=== PATIENT | male | born 1955 | race Caucasian/White ===

== ENCOUNTER 2020-10-03 13:25 | Outpatient (CLI) | payer MEDICARE ==
[2020-10-03 16:27] VITALS: BP 150/70
--- NOTE | 2020-10-03 16:27 | SLEEP CARE CONSULTATION ---
Information from patient questionnaire entered by Luisa Norman. I have reviewed and concur with the information entered by Luisa Norman. This document represents the service I personally performed and the decisions made by me, Jazlyn Maldonado MD, [facility]. History of Present Illness Service Date and Time: 10/03/2020 1325 Reason for Visit: New patient, Previously diagnosed sleep apnea, sleep apnea on CPAP therapy Usual bedtime: 9 PM Time it takes to fall asleep: 10 minutes Observed to quit breathing while asleep: Yes Sleeps alone due to snoring: Yes Number of times waking at night: 1 Reasons for waking at night: reports: Bathroom Toss, Turn, or Twitch while sleeping: No Recalls having dreams: Yes Usually gets out of bed at: 7 am Feels refreshed in the morning: Yes Morning headache: No Sleepy or fatigued during the day: No Ever fallen asleep while driving: No Takes day naps: Yes Dreams during day naps: No Prior sleep studies: Yes Year and Where: [place] Additional HPI information: I had the pleasure of seeing Mr. Josue today regarding obstructive sleep apnea- hypopnea. As you know, he is a 65 year old gentleman who was diagnosed with the sleep-disordered breathing in [place] about 20 years ago. His last sleep study was 12 years ago. Records are not available. The ResMed AirSense that he is using is his 3rd device. It is set on 7 cmH2O. It is 4 years old. He uses the device every night and all night. The compliance data show usage in 171 out of the past 180 nights, averaging 5.2 hours a night (he usually does not put it back on after going to the bathroom in the middle of the night). The residual AHI is 7.1 and average air leak is 8.5 L/minute. He wears a ResMed AirTouch F- 20 full face mask. He gets his supplies from [employer]. He finds the treatment beneficial. - Parasomnia Symptoms Ever been unable to move upon waking from sleep: No Walks in sleep: No Talks in sleep: No Ever acted out dreams in sleep: No Ever felt weak in the knees when startled or emotional: No Bothered by creepy, crawly, restless sensations in legs: No Problems with memory or concentration: No CPAP Compliance Data - Data Reviewed with Patient Average duration of nightly device use: 5 hr 13 min Compliance rate %: 72 (180 days) Current pressure setting (cmH2O): 7 Humidity settin Average residual AHI: 7.1 Subjective Initial [place] Sleepiness Scale score: 5 (in 2020) Past Medical History Past Medical History: reports: Depression Social History The patient's occupation is a RETIRED. Patient is and lives in [place]. Have you smoked in the past 12 months: No Alcohol use: No Caffeine use: Yes Caffeine amount and frequency: 3 a day Family History Family history of sleep disordered breathing: No Allergies and Home Medications Drug allergies reviewed: Yes Home medication list reviewed: Yes Review of Systems Cardiovascular: denies: high blood pressure, palpitations, chest pain, irregular heart rate or pulse, leg or foot swelling, have to sleep sitting up, other Respiratory: denies: shortness of breath, wheeze, sputum production, chronic cough, other Gastrointestinal: denies: heartburn, difficulty swallowing, nausea, vomitting, diarrhea, abdominal pain, other Urinary: reports: frequency Neurological: denies: headaches, seizure, head trauma, disorientation, speech dysfunction, gait or balance problems, fainting or unconsciousness, other Psychiatric: reports: depression Ear/Nose/Throat: reports: injury to nose Endocrine: denies: thyroid disease, history of goiter, sluggishness, too hot or cold, excessive thirst, increased appetite, increased urination, unexplained weakness, other Musculoskeletal: denies: joint pain, neck pain, back pain, joint swelling, muscle pain or cramping, mobility problems, other Immunologic: denies: sneezing, rash, itching, allergies to food or environment, other Physical Exam Vital signs obtained and entered by: Dr. Maldonado Blood Pressure: 150/70 Cuff size: regular Heart Rate: 72 O2 Saturation: 97 Height: 6 ft 1 in Weight: 280 lb Body Mass Index: 36.9 BMI Classification: Obese Neck circumference: 17.5 Mood/affect: normal Impression and Plan IMPRESSION: 1. Obstructive Sleep Apnea-Hypopnea Syndrome, as previously diagnosed. The severity is unknown. The patient is using his CPAP consistently. The pressure of 7 cmH2O is not quite effective. I will raise it to 9 cmH2O. The patient has be purchasing supplies from [employer] [id number]. He is now on Medicare and would like the insurance to take over the cost of supplies. I explained to him that he will need to have a new sleep study to confirm the diagnosis and its severity. The patient agrees to another in-laboratory polysomnography. Plan: 1. Repeat in-laboratory polysomnography. The patient will not use his CPAP one night prior to the sleep study. 2. Try to lose weight. 3. Pressure raised from 7 to 9 cmH2O on his device. 4. Return for follow up after the sleep study. Adjust device pressure to (cmH2O): 9 Follow up recommended for: Weight management Visit Type: In Office Time Spent with Patient (minutes): 15 Provider Statement: I spent 100% of the Face to Face Visit with the patient with greater than 50% spent counseling the patient and coordination of care.
== END 2020-10-03 13:26 | disposition home or self-care (01) ==
LOC: SC 13:25
PROVIDERS: ATTEND Internal Medicine Pulmonary Disease
DX: G47.33 Obstructive sleep apnea (adult) (pediatric) (principal); E66.9 Obesity, unspecified; Z68.36 Body mass index [BMI] 36.0-36.9, adult
CPT/HCPCS: 99202; G0463; 99212

== ENCOUNTER 2020-12-02 19:21 | Outpatient (CLI) | payer BC, MEDICARE | END 2020-12-02 19:22 | disposition home or self-care (01) | LOC: SC 19:21 | PROVIDERS: ATTEND Internal Medicine Pulmonary Disease | DX: G47.33 Obstructive sleep apnea (adult) (pediatric) (principal); G47.61 Periodic limb movement disorder | CPT/HCPCS: 95810 ==

== ENCOUNTER 2020-12-19 13:24 | Outpatient (CLI) | payer MEDICARE ==
--- NOTE | 2020-12-19 14:15 | SLEEP CARE CONSULTATION ---
Information from patient questionnaire entered by Luisa Norman. I have reviewed and concur with the information entered by Luisa Norman. This document represents the service I personally performed and the decisions made by me, Jazlyn Maldonado MD, [facility]. History of Present Illness Service Date and Time: 12/19/2020 1324 Initial [place] Sleepiness Scale score: 5 (in 2020) Current [place] Sleepiness Scale score: 4 Additional HPI information: Mr. Josue returned for follow up of the sleep study he had on 12/02/2020. The polysomnography showed that the patient had normal sleep efficiency. The sleep architecture was abnormal for sleep fragmentation and reduced amount of time spent in REM and slow wave sleep (N3). Respiratory monitoring showed severe obstructive sleep apnea-hypopnea (AHI = 58.3) associated with frequent arousals, oxyhemoglobin desaturation and mild hypoxia (swetha oxygen saturation of 85%). The patient did not sleep supine during this study (supine AHI = 0; non-supine = 58.35). Snore was light to moderate in intensity. There was severe periodic leg movement of sleep contributing to the sleep fragmentation. Cardiac rhythm was normal sinus rhythm without significant arrhythmia. No abnormal behavior (parasomnia) observed during the night. The patient was informed of these findings. I explained to him the pathophysiology behind obstructive sleep apnea. The patient has been using CPAP for several years. He is eligible for a new one. His current pressure is 9 cmH 2O. He wears a ResMed AirTouch F-20 full face mask. Sleep Study - Results Type of Sleep Study: Polysomnography Prior sleep studies: Yes Year and Where: in [place] Allergies and Home Medications Drug allergies reviewed: Yes Home medication list reviewed: Yes Review of Systems Review of systems same as previous: Yes Physical Exam Height: 6 ft 1 in Weight: 280 lb Body Mass Index: 36.9 BMI Classification: Obese Impression and Plan IMPRESSION: 1. Obstructive Sleep Apnea-Hypopnea Syndrome, severe, associated with mild hypoxemia and sleep fragmentation. The patient is using a CPAP. Because the CPAP is now older than the useful life of 5 years, I will order the patient a new one and make it an autoCPAP set between 6 and 12 cmH2O. PLAN: 1. Prescription made for an autoCPAP, heated humidifier, and related supplies. 2. Attempt to lose weight and avoid alcohol consumption near bedtime. 3. Return for follow up after one month of using the CPAP. Counseling Topics: Weight control Visit Type: In Office Time Spent with Patient (minutes): 15 Provider Statement: I spent 100% of the Face to Face Visit with the patient with greater than 50% spent counseling the patient and coordination of care.
== END 2020-12-19 13:25 | disposition home or self-care (01) ==
LOC: SC 13:24
PROVIDERS: ATTEND Internal Medicine Pulmonary Disease
DX: G47.33 Obstructive sleep apnea (adult) (pediatric) (principal); E66.9 Obesity, unspecified; Z68.36 Body mass index [BMI] 36.0-36.9, adult
CPT/HCPCS: 99212; G0463

== ENCOUNTER 2021-06-26 08:24 | Outpatient (CLI) | payer BC, MEDICARE ==
--- NOTE | 2021-06-26 16:37 | Ultrasound Report ---
PROCEDURE: Testicle INDICATIONS: TESTICULAR MASS TECHNIQUE: Real-time scanning was performed of the scrotum and testicles, with image documentation. Color and p ulse Doppler interrogation was performed of both testicles. COMPARISON: None. FINDINGS: Right: Testicle is normal in size at 5.6 x 2.9 x 3.6 cm, and homogenous in echotexture. Epididymis is normal in overall size and morphology. Small hydrocele. Small varicocele. Scrotal swelling noted. Left: Testicle is normal in size at 5.4 x 2.8 x 1.0 cm, and homogeneous in echotexture. Epididymis is normal in overall size and morphology. Small hydrocele. Debris noted within the hydrocele. Small v aricocele. Debris noted in the left hydrocele. Scrotal swelling noted. Doppler: Color and pulse Doppler demonstrate normal and symmetric arterial flow in both testicles. IMPRESSION: 1. No testicular masses. 2. No evidence of orchitis or epididymitis. 3. Small bilateral varicoceles. 4. Small bilateral hydroceles. Left hydrocele contains debris and developing scrotal pyocele cannot b e excluded by imaging alone. Recommend correlation with clinical data. 5. Mild scrotal swelling. Finding is nonspecific but can be related cellulitis. Please correlate with clinical data. Reviewed by: Jaci Carroll MD, PhD on 06/26/2021 4:35 PM PST Approved by: Jaci Carroll MD, PhD on 06/26/2021 4:35 PM PST Station ID: [id number]
== END 2021-06-26 08:25 | disposition home or self-care (01) ==
LOC: DI 08:24
PROVIDERS: ATTEND Family Medicine
DX: I86.1 Scrotal varices (principal); N43.3 Hydrocele, unspecified; N50.89 Other specified disorders of the male genital organs

== ENCOUNTER 2022-01-03 08:58 | Outpatient (CLI) | payer OTHER ==
--- NOTE | 2022-01-03 14:58 | Ultrasound Report ---
PROCEDURE: Aorta Screening INDICATIONS: SCREENING FOR CARDIOVASCULAR DISEASE TECHNIQUE: Real time scanning was performed of the aorta and iliac arteries, with image documentatio n. COMPARISON: None FINDINGS: Aorta: Proximal aortic diameter measures 1.9 x 1.9 cm. Mid-aorta measures 1.9 x 1.8 cm. Distal aor tic diameter is 1.6 x 1.7 cm. Iliac arteries: Right common iliac artery measures 1.2 x 1.2 cm. Left common iliac artery measures 1.3 x 1.4 cm. IMPRESSION: Normal caliber aorta. No evidence of abdominal aortic aneurysm. Reviewed by: Kam Razo on 01/03/2022 2:57 PM PDT Approved by: Kam Razo on 01/03/2022 2:57 PM PDT Station ID: [id number]
== END 2022-01-03 08:59 | disposition home or self-care (01) ==
LOC: DI 08:58
PROVIDERS: ATTEND Internal Medicine
DX: Z13.6 Encounter for screening for cardiovascular disorders (principal)

== ENCOUNTER 2022-07-02 09:54 | Outpatient (CLI) | payer MEDICARE, OTHER ==
[2022-07-02 13:24] VITALS: BP 128/66
--- NOTE | 2022-07-02 13:24 | SLEEP CARE CONSULTATION ---
Information from patient questionnaire entered by Nora Vora LPN. I have reviewed and concur with the information entered by Nora Vora LPN. This document represents the service I personally performed and the decisions made by me, Jazlyn Maldonado MD, [facility]. History of Present Illness Service Date and Time: 07/02/2022 0954 Reason for follow up: annual Prior sleep studies: Yes Year and Where: in [place] Type of Sleep Study: Polysomnography HPI additional information: Mr. Josue was diagnosed to have Severe obstructive sleep apnea-hypopnea syndrome and returns today for follow up of CPAP therapy. The patient purchased the device from [employer] and was fitted with a full face mask. He is getting supplies from [employer]. The compliance data is not available because the [employer] website is down. He complains of no particular problem with the device such as soreness on the face, dry nose, epistaxis, nasal congestion or headache. He thinks that the pressure of 6 - 12 cmH2O is comfortable. On the CPAP therapy he notices improvement in his sleep quality, and that he wakes up feeling fresher in the morning and more awake/alert during the day. His notices no snore at all. [place] Sleepiness Scale score is 3. Sleep Study - Results Type of Sleep Study: Polysomnography Prior sleep studies: Yes Year and Where: in [place] - Discussion Sleep Study discussion: LAST SEEN 11/2020 Subjective Initial [place] Sleepiness Scale score: 5 (in 2020) Current [place] Sleepiness Scale score: 3 (07/02/2022) Allergies and Home Medications Drug allergies reviewed: Yes Home medication list reviewed: Yes Review of Systems Review of systems same as previous: Yes Physical Exam Vital signs obtained and entered by: NORA Verdugo LPN Blood Pressure: 128/66 Cuff size: long Heart Rate: 82 O2 Saturation: 95 Height: 6 ft 1 in Weight: 664 lb 14.626 oz Body Mass Index: 87.7 BMI Classification: Morbidly Obese Impression and Plan IMPRESSION: 1. Obstructive Sleep Apnea-Hypopnea Syndrome, severe, with the patient continuing to do well on nasal CPAP therapy. According to him, he has excellent compliance and significant clinical benefits. The current pressure appears effective and comfortable. Overall, he is very satisfied with treatment and plans to continue with it long-term. The patient would like to return his machine to [employer] because they are charging him for it and his insurance has changed to [employer]. PLAN: 1. Continue with autoCPAP set at 6 - 12 cm H2O. 2. Prescription made for a new machine through [employer]. He will try to return his old ResMed AirSense 10 to [facility]. 3. Try to lose weight. 4. Return for follow up after one month of using the CPAP. Continue with device pressure at (cmH2O): 6 - 12 Prescriptions: Auto CPAP, Device supplies Follow up with Sleep Care in: 1-2 months Follow up recommended for: Weight management Visit Type: In Office Time Spent with Patient (minutes): 15 Provider Statement: I spent 100% of the Face to Face Visit with the patient with greater than 50% spent counseling the patient and coordination of care.
== END 2022-07-02 09:55 | disposition home or self-care (01) ==
LOC: SC 09:54
PROVIDERS: ATTEND Internal Medicine Pulmonary Disease
DX: G47.33 Obstructive sleep apnea (adult) (pediatric) (principal); E66.01 Morbid (severe) obesity due to excess calories; Z68.45 Body mass index [BMI] 70 or greater, adult
CPT/HCPCS: 99212; G0463

== ENCOUNTER 2022-08-30 14:35 | Outpatient (CLI) | payer MEDICARE ==
--- NOTE | 2022-08-30 15:00 | Sleep Patient Instructions ---
Sleep Center Visit Summary - Patient Visit Information Reason for Visit: First compliance visit with new CPAP machine. - Patient Instructions Additional Instructions: You were here for follow up of CPAP therapy. You will be continued on CPAP therapy with pressure changed to 9-14 cmH2O. You should follow up with sleep care in 1-2 months. You may contact us sooner for any questions or concerns. - Clinic Information Contact: [facility] [address] [place] [id number] [email or web address] T: [phone]
[2022-08-30 15:03] VITALS: BP 142/76
--- NOTE | 2022-08-30 15:03 | SLEEP CARE CONSULTATION ---
Information from patient questionnaire entered by Juan Daniel Carbajal. I have reviewed and concur with the information entered by Juan Daniel Carbajal. This document represents the service I personally performed and the decisions made by me, Chica Gonzalez ARNP. History of Present Illness Service Date and Time: 08/30/2022 1435 Previous diagnosis: Severe, Obstructive Sleep Apnea-Hypopnea Syndrome AHI: 58.3 (in 2020) Reason for follow up: first compliance after device update Equipment type: CPAP (RESMED Airsense 11, s/u 06/2022; [place] CARD NEEDED FOR DOWNLOAD AND PRESSURE CHANGE) Equipment obtained from: [email or web address] (got new device) Mask style: Full face Mask brand: Resmed (AirTouch F20) Backup mask available: Yes (old mask) Last cushion change: 1 week Prior sleep studies: Yes Year and Where: in [place] Type of Sleep Study: Polysomnography HPI additional information: SARAH RESTREPO was diagnosed to have severe, AHI 58.3, obstructive sleep apnea- hypopnea syndrome and returned today for CPAP therapy first compliance after updating device follow-up. Sleep Study - Results Type of Sleep Study: Polysomnography Prior sleep studies: Yes Year and Where: in [place] CPAP Compliance Data - Data Reviewed with Patient Average duration of nightly device use: 7 hours 37 minutes Compliance rate %: 100 (44/44 days used) Current pressure setting (cmH2O): 6-12 (median 9.6, avg 11.6, max 11.9) Average residual AHI: 11.9 Central apnea: 4.4 Obstructive apnea: 5.7 Hypopnea: 1.7 Average large leak: 0 lpm Subjective Initial [place] Sleepiness Scale score: 5 (in 2020) Current [place] Sleepiness Scale score: 3 (08/30/22) Allergies and Home Medications Known drug allergies: No Drug allergies reviewed: Yes Home medication list reviewed: Yes (no changes) Allergy and home medication list: Allergies No Known Drug Allergies Allergy (Verified 08/29/22 13:47) Review of Systems Review of systems same as previous: Yes (no changes) Physical Exam Vital signs obtained and entered by: JUAN DANIEL Garcia MA Blood Pressure: 142/76 (LEFT ARM) Cuff size: long Heart Rate: 81 O2 Saturation: 95 Height: 6 ft 1 in Weight: 304 lb 12.8 oz Body Mass Index: 40.1 BMI Classification: Morbidly Obese Impression and Plan 1. Obstructive Sleep Apnea-Hypopnea Syndrome, severe, with good treatment compliance and fair apnea control with elevated AHI. On CPAP therapy, the patient has better sleep quality and is more rested overall. Patient likes the new device. He has significant improvement of his sleep apnea but current pressure is slightly ineffective. The patients pressure will be changed to autoCPAP 9-14 cmH20 for elevation of residual AHI. Patient advised to contact me if pressure change is uncomfortable so that it can be adjusted. Goals for apnea control discussed. Patient's apnea severity and rationale for treatment to reduce apnea, improve sleep quality and reduce cardiovascular and cerebrovascular events was reviewed. I also reviewed the benefit of consistent device use of CPAP for depression. 2. Obesity, unspecified. Currently patients BMI is 40.1. Obesity increases the risk of apnea, CPAP pressure requirements and overall health risks especially cardiovascular and diabetes. Thus patient is advised to lose weight. * Change auto CPAP pressure to 9-14 cmH2O * Notify me if snoring with mask or feeling that the pressure is too much or too little * Attempt to lose weight * Call this office if any problems using CPAP * Return for follow up in 1-2, or sooner if concerns arise Counseling Topics: Spare mask, Weight loss health impact Visit Type: In Office Time Spent with Patient (minutes): 21 Provider Statement: I spent 100% of the Face to Face Visit with the patient with greater than 50% spent counseling the patient and coordination of care.
== END 2022-08-30 14:36 | disposition home or self-care (01) ==
LOC: SC 14:35
PROVIDERS: ATTEND Nurse Practitioner Family
DX: G47.33 Obstructive sleep apnea (adult) (pediatric) (principal); E66.01 Morbid (severe) obesity due to excess calories; Z68.41 Body mass index [BMI] 40.0-44.9, adult
CPT/HCPCS: 99213; G0463; 99212

== ENCOUNTER 2022-10-11 14:24 | Outpatient (CLI) | payer MEDICARE ==
[2022-10-11 14:40] VITALS: BP 143/84
--- NOTE | 2022-10-11 14:40 | SLEEP CARE CONSULTATION ---
Information from patient questionnaire entered by Madeleine De La Rosa. I have reviewed and concur with the information entered by Madeleine De La Rosa. This document represents the service I personally performed and the decisions made by , Chica Gonzalez ARNP. History of Present Illness Service Date and Time: 10/11/2022 1424 Previous diagnosis: Severe, Obstructive Sleep Apnea-Hypopnea Syndrome AHI: 58.3 (in 2020) Reason for follow up: one month (1-month follow-up) Equipment type: CPAP (RESMED Airsense 11, s/u 06/2022; [place] CARD NEEDED FOR DOWNLOAD AND PRESSURE CHANGE) Equipment obtained from: [employer] ([employer] supplies) Mask style: Full face Mask brand: Resmed (AirTouch F20) Backup mask available: Yes (old mask) Last cushion change: 30 days ago Prior sleep studies: Yes Year and Where: in [place] Type of Sleep Study: Polysomnography HPI additional information: SARAH RESTREPO was diagnosed to have severe, AHI 58.3, obstructive sleep apnea- hypopnea syndrome and returned today for CPAP therapy one month follow-up. Sleep Study - Results Type of Sleep Study: Polysomnography Prior sleep studies: Yes Year and Where: in [place] CPAP Compliance Data - Data Reviewed with Patient Average duration of nightly device use: 8 hours 23 minutes Compliance rate %: 100 (30/30 days used) Current pressure setting (cmH2O): 9-14 (avg 13.0) Average residual AHI: 7.0 Central apnea: 3.3 Obstructive apnea: 2.3 Hypopnea: 1.2 Subjective Patient concerns: denies: aerophagia, mask discomfort, air blowing in eyes, mask leak noise, condensation in mask/hose, nasal congestion, dry mouth, nose, throat, epistaxis Observed to snore while using device: No Current pressure setting perceived as: comfortable On therapy, patient: reports: sleeping better, awakening more refreshed, being more awake and alert during the day, more rested overall. denies: drowsiness while driving Initial [place] Sleepiness Scale score: 5 (in 2020) Current [place] Sleepiness Scale score: 2 Allergies and Home Medications Known drug allergies: No Drug allergies reviewed: Yes Allergy and home medication list: Allergies No Known Drug Allergies Allergy Physical Exam Vital signs obtained and entered by: Chica Mcclain NP Blood Pressure: 143/84 Cuff size: wrist (right) Heart Rate: 74 O2 Saturation: 94 Height: 6 ft 1 in Weight: 299 lb 3.2 oz Body Mass Index: 39.4 BMI Classification: Obese Impression and Plan 1. Obstructive Sleep Apnea-Hypopnea Syndrome, severe, with good treatment compliance and fair apnea control with mild elevation of residual AHI. On CPAP therapy, the patient has better sleep quality and is more rested overall. Patient has significant improvement of their sleep apnea and is satisfied with current CPAP therapy. Patient denies problems with oral dryness, nasal congestion, epistaxis, skin irritation or aerophagia. Patient still having a mild elevation of his AHI. The patients pressure will be changed to autoCPAP 9-12 cmH20 for elevation of residual AHI. Patient advised to contact me if pressure change is uncomfortable so that it can be adjusted. Goals for apnea control discussed. Patient's apnea severity and rationale for treatment to reduce apnea, improve sleep quality and reduce cardiovascular and cerebrovascular events was reviewed. I also reviewed the benefit of consistent device use of CPAP for depression. 2. Obesity, unspecified. Currently patients BMI is 39.4. Obesity increases the risk of apnea, CPAP pressure requirements and overall health risks especially cardiovascular and diabetes. Thus patient is advised to lose weight. * Change auto CPAP pressure to 9-12 cmH2O * Notify me if snoring with mask or feeling that the pressure is too much or too little * Attempt to lose weight * Call this office if any problems using CPAP * Return for follow up in 1 year, or sooner if concerns arise Counseling Topics: Spare mask, Weight loss health impact Follow up with Sleep Care in: 1 year Visit Type: In Office Time Spent with Patient (minutes): 20 Provider Statement: I spent 100% of the Face to Face Visit with the patient with greater than 50% spent counseling the patient and coordination of care.
== END 2022-10-11 14:25 | disposition home or self-care (01) ==
LOC: SC 14:24
PROVIDERS: ATTEND Nurse Practitioner Family
DX: G47.33 Obstructive sleep apnea (adult) (pediatric) (principal); E66.9 Obesity, unspecified; Z68.39 Body mass index [BMI] 39.0-39.9, adult
CPT/HCPCS: 99213; G0463; 99212

== ENCOUNTER 2023-10-24 10:16 | Outpatient (CLI) | payer MEDICARE ==
--- NOTE | 2023-10-24 10:41 | Sleep Patient Instructions ---
Sleep Center Visit Summary - Patient Visit Information Reason for Visit: Annual follow-up - Patient Instructions Additional Instructions: You will continue with CPAP therapy with pressure changed to 10-13 cmH2O. A supply prescription will be updated with your DME. We encourage you to continue to try to lose weight. Please follow up with the sleep care office in 1 year. - Clinic Information Contact: [facility] [address] [place] [address] [email or web address] T: [phone]
--- NOTE | 2023-10-24 10:51 | SLEEP CARE CONSULTATION ---
Information from patient questionnaire entered by Juan Daniel Carbajal. I have reviewed and concur with the information entered by Juan Daniel Carbajal. This document represents the service I personally performed and the decisions made by , Chica Gonzalez ARNP. History of Present Illness Service Date and Time: 10/24/2023 1016 Previous diagnosis: Severe, Obstructive Sleep Apnea-Hypopnea Syndrome AHI: 58.3 (in 2020) Reason for follow up: annual (LAST SEEN 09/2022) Equipment type: CPAP (RESMED Airsense 11, s/u 06/2022; SD CARD NEEDED FOR DOWNLOAD AND PRESSURE CHANGE) Equipment obtained from: [employer] (getting supplies) Mask style: Full face Backup mask available: Yes (old mask) Last cushion change: 3 days Prior sleep studies: Yes Year and Where: in [place] Type of Sleep Study: Polysomnography HPI additional information: SARAH RESTREPO was diagnosed to have severe, AHI 58.3, obstructive sleep apnea- hypopnea syndrome and returned today for CPAP therapy annual follow-up. Sleep Study - Results Type of Sleep Study: Polysomnography Prior sleep studies: Yes Year and Where: in [place] CPAP Compliance Data - Data Reviewed with Patient Average duration of nightly device use: 9 HRS 8 MINS Compliance rate %: 99 (10/22/22-10/21/23; 363/365 days used) Current pressure setting (cmH2O): 9-12 (avg 11.7) Average residual AHI: 8.4 Central apnea: 4.4 Obstructive apnea: 2.6 Hypopnea: 1.3 Average large leak: 0 L/min Subjective Missed days of use due to: reports: travel (forgot machine) Patient concerns: denies: aerophagia, mask discomfort, air blowing in eyes, mask leak noise, condensation in mask/hose, nasal congestion, dry mouth, nose, throat, epistaxis Observed to snore while using device: No Current pressure setting perceived as: comfortable On therapy, patient: reports: sleeping better, awakening more refreshed, being more awake and alert during the day, more rested overall. denies: drowsiness while driving Initial [place] Sleepiness Scale score: 5 (in 2020) Current [place] Sleepiness Scale score: 3 (10/24/23) Allergies and Home Medications Known drug allergies: No Drug allergies reviewed: Yes Home medication list reviewed: Yes (new heart med, can't remember name) Allergy and home medication list: Allergies No Known Drug Allergies Allergy (Verified 10/22/23 08:49) Review of Systems Review of systems same as previous: Yes (NO CHANGE) Physical Exam Vital signs obtained and entered by: JUAN DANIEL Garcia MA Blood Pressure: 155/80 (LEFT ARM) Cuff size: long Heart Rate: 84 O2 Saturation: 95 Height: 6 ft 1 in Weight: 309 lb 3.2 oz Body Mass Index: 40.8 BMI Classification: Morbidly Obese Impression and Plan 1. Obstructive Sleep Apnea-Hypopnea Syndrome, severe, with good treatment compliance and fair apnea control with mildly elevated residual AHI. On CPAP therapy, the patient has better sleep quality and is more rested overall. The patients pressure will be changed to autoCPAP 10-13 cmH20 for elevation of residual AHI. Patient advised to contact me if pressure change is uncomfortable so that it can be adjusted. Goals for apnea control discussed. Patient states he is moving in about 3 weeks and will be in [place] permanently. I advised him that he will need to establish care with a sleep provider in that area. In the meantime if he has any issues we can help him with he can call the office for assistance. Patient's apnea severity and rationale for treatment to reduce apnea, improve sleep quality and reduce cardiovascular and cerebrovascular events was reviewed. I also reviewed the benefit of consistent device use of CPAP for depression. 2. Obesity, unspecified. Currently patients BMI is 40.8. Obesity increases the risk of apnea, CPAP pressure requirements and overall health risks especially cardiovascular and diabetes. Thus patient is advised to lose weight. * Change auto CPAP pressure to 10-13 cmH2O * Update supply prescription. * Notify me if snoring with mask or feeling that the pressure is too much or too little * Attempt to lose weight * Call this office if any problems using CPAP * Return for follow up in 12 months, or sooner if concerns arise Prescriptions: Device supplies Follow up with Sleep Care in: 1 year (in [facility]) Visit Type: In Office Time Spent with Patient (minutes): 21 Provider Statement: I spent 100% of the Face to Face Visit with the patient with greater than 50% spent counseling the patient and coordination of care.
[2023-10-24 10:53] VITALS: BP 155/80; O2SAT 95
== END 2023-10-24 10:17 | disposition home or self-care (01) ==
LOC: SC 10:16
PROVIDERS: ATTEND Nurse Practitioner Family
DX: G47.33 Obstructive sleep apnea (adult) (pediatric) (principal); E66.01 Morbid (severe) obesity due to excess calories; Z68.41 Body mass index [BMI] 40.0-44.9, adult
CPT/HCPCS: 99213; G0463; 99212